=== PATIENT | male | born 1990 | race Caucasian/White ===

== ENCOUNTER 2017-02-27 00:47 | Emergency (ER) | payer OTHER ==
[2017-02-27 01:58] VITALS: BP 118/79
== END 2017-02-27 01:58 | disposition home or self-care (01) ==
LOC: ED 00:47
DX: S02.2XXA Fracture of nasal bones, initial encounter for closed fracture (principal); W50.0XXA Accidental hit or strike by another person, initial encounter; Y93.89 Activity, other specified; Y92.89 Other specified places as the place of occurrence of the external cause; Y99.8 Other external cause status